=== PATIENT | male | born 1985 | race Hispanic/Latino ===

== ENCOUNTER 2017-10-24 15:06 | Emergency (ER) | payer SELFPAY ==
[2017-10-24] MEDS ORDERED: Adacel (T-DAP) 0.5 ML VIAL ONE (16:10)
== END 2017-10-24 16:40 | disposition home or self-care (01) ==
LOC: ERS 15:06
DX: S01.01XA Laceration without foreign body of scalp, initial encounter (principal); J45.909 Unspecified asthma, uncomplicated; F17.200 Nicotine dependence, unspecified, uncomplicated; W22.8XXA Striking against or struck by other objects, initial encounter; Y99.0 Civilian activity done for income or pay
CPT/HCPCS: 12001; 90471; 90715

== ENCOUNTER 2017-11-04 18:58 | Emergency (ER) | payer SELFPAY | END 2017-11-04 20:31 | disposition home or self-care (01) | LOC: ERS 18:58 | DX: S01.01XD Laceration without foreign body of scalp, subsequent encounter (principal); J45.909 Unspecified asthma, uncomplicated; F17.200 Nicotine dependence, unspecified, uncomplicated ==

== ENCOUNTER 2019-07-01 08:08 | Emergency (ER) | payer SELFPAY ==
--- NOTE | 2019-07-01 09:44 | RAD ---
LEFT ANKLE THREE VIEWS: HISTORY: Left ankle pain. FINDINGS: There is a minimally displaced oblique fracture involving the distal shaft of the left fibula. No dis location is seen. POS: [facility]
== END 2019-07-01 09:07 | disposition home or self-care (01) ==
LOC: ERS 08:08
DX: S82.432A Displaced oblique fracture of shaft of left fibula, initial encounter for closed fracture (principal); J45.909 Unspecified asthma, uncomplicated; F17.200 Nicotine dependence, unspecified, uncomplicated; X50.1XXA Overexertion from prolonged static or awkward postures, initial encounter